=== PATIENT | female | born 1990 | race African-American/Black ===

== ENCOUNTER 2019-04-20 04:25 | Emergency (ER) | payer OTHER ==
[~2019-04-20] VITALS: Ht 162.6 cm; Wt 149.2 kg
[~2019-04-20 04:25] MED LIST: ALBUTEROL SUL5 MG/ML IH; ALBUTEROL2.5 MG/0.1 INH; BACTRIM DS TAB1 EACH PO; KEFLEX500 MG PO; MEDROLDOSEPACK PO; NOHOMEMEDICATIONS; TRINATE TABLET1 TAB PO
[2019-04-20 05:18] LABS: ABSOLUTE NEUTROPHILS 4.7 thou/uL (1.4-8.2); EOSINOPHILS 0.9 % (0.0-3.0); HEMATOCRIT 33.1 % (37.0-47.0); HEMOGLOBIN 10.4 gm/dL (12.0-15.0); LYMPHOCYTES 19.2 % (24.0-44.0); MCH 23.7 pg (26.0-34.0); MCHC 31.5 g/dL (28.0-37.0); MONOCYTES 7.1 % (1.0-8.0); PLATELET COUNT 212 thou/uL (150-400); POLYS 71.8 % (36.0-66.0); RBC 4.41 mil/uL (4.20-5.00); RDW 15.1 % (10.5-14.5); WBC 6.5 thou/uL (4.0-11.0)
[2019-04-20 05:25] LABS: ANION GAP 9 mmol/L (7-16); BUN 11 mg/dL (7-18); CALCIUM 8.4 mg/dL (8.5-10.1); CHLORIDE 102 mmol/L (98-107); CO2 23 mmol/L (21-32); CREATININE 0.8 mg/dL (0.6-1.0); GLUCOSE 98 mg/dL (74-106); SODIUM 134 mmol/L (136-145)
[2019-04-20 05:26] LABS: URINE BILIRUBIN NEGATIVE (Negative); URINE BLOOD NEGATIVE (Negative); URINE CLARITY SL CLOUDY; URINE COLOR YELLOW; URINE GLUCOSE-RANDOM* NEGATIVE (Negative); URINE KETONES NEGATIVE (Negative); URINE LEUKOCYTES-REFLEX NEGATIVE (Negative); URINE NITRITE-REFLEX NEGATIVE (Negative); URINE PROTEIN (DIPSTICK) NEGATIVE (Negative); URINE SPECIFIC GRAVITY >= 1.030 (1.005-1.035); URINE UROBILINOGEN 0.2 E.U./dl (0.2-1.0)
[2019-04-20 05:31] LABS: ALBUMIN 3.3 g/dL (3.4-5.0); LIPASE 81 U/L (73-393); SGOT 14 U/L (15-37); SGPT < 6 U/L (30-65); TOTAL BILIRUBIN 0.3 mg/dL (<0.1-1.0); TOTAL PROTEIN 7.3 g/dL (6.4-8.2)
[2019-04-20] MEDS ORDERED: NORCO 7.5-3251 EACH PO (06:22)
[2019-04-20] MEDS ORDERED: BENTYL 20 MG TA20 M1 PO (06:22)
[2019-04-20] MEDS ORDERED: ZOFRAN ODT4 MG PO (06:22)
[2019-04-20 06:30] VITALS: BP 136/58
== END 2019-04-20 06:45 | disposition home or self-care (01) ==
LOC: ER 04:25
PROVIDERS: Emergency Medicine
DX: R10.9 Unspecified abdominal pain (principal); R19.7 Diarrhea, unspecified; R11.0 Nausea; J45.909 Unspecified asthma, uncomplicated; E66.01 Morbid (severe) obesity due to excess calories; Z68.43 Body mass index [BMI] 50.0-59.9, adult; Z88.6 Allergy status to analgesic agent; Z88.8 Allergy status to other drugs, medicaments and biological substances; Z91.018 Allergy to other foods